=== PATIENT | female | born 1965 | race Caucasian/White ===

== ENCOUNTER 2020-10-05 09:00 | Inpatient (IN) | payer OTHER ==
[~2020-10-05] VITALS: Ht 172.7 cm; Wt 98.4 kg
[2020-10-05 10:27] VITALS: BP 134/84
[2020-10-05] MEDS ORDERED: ACETAMINOPHEN 500 MG TABLET PO PRN (12:30)
[2020-10-05] MEDS ORDERED: ONDANSETRON 2MG/ML, 2ML IVPush PRN (12:30)
[2020-10-05] MEDS ORDERED: PLEASE ENTER ALLERGIES MC SCH (12:30)
[2020-10-05 13:10] LABS: BASOPHILS % (AUTO) 0 % (0-1); EOSINOPHILS % (AUTO) 0 % (1-7); LYMPHOCYTES % (AUTO) 9 % (22-44); MEAN CORPUSCULAR HGB CONC 32.5 g/dL (32.4-35.8); MEAN PLATELET VOLUME 9.8 fL (7.4-10.4); MONOCYTES % (AUTO) 1 % (2-9); NEUTROPHILS % (AUTO) 90 % (42-75); PLATELET COUNT 246 x10^3/uL (130-400); RED BLOOD COUNT 4.98 x10^6/uL (3.82-5.3); RED CELL DISTRIBUTION WIDTH 14.7 % (9.6-15.2)
[2020-10-05 13:20] LABS: ALANINE AMINOTRANSFERASE 40 U/L (12-78); ALBUMIN 3.7 g/dL (3.4-5.0); ANION GAP 6 mmol/L (5-15); CALCIUM 9.9 mg/dL (8.5-10.1); CHLORIDE 103 mmol/L (98-107); CREATININE 0.66 mg/dL (0.55-1.02)
[2020-10-05 13:21] LABS: ALKALINE PHOSPHATASE 113 U/L (45-117); BILIRUBIN,TOTAL 0.6 mg/dL (0.2-1.0); TOTAL PROTEIN 7.4 g/dL (6.4-8.2)
[2020-10-05 13:43] VITALS: BP 117/80
[2020-10-05] MEDS ORDERED: DOCU50LI24 PO (14:39)
[2020-10-05] MEDS ORDERED: MULT-482 PO (14:39)
[2020-10-05] MEDS ORDERED: POLY17PO5 PO (14:39)
[2020-10-05] MEDS ORDERED: IBUP200C75 PO (14:39)
[2020-10-05] MEDS ORDERED: CHOL2400 PO (14:39)
[2020-10-05] MEDS ORDERED: MAGN400O7 PO (14:39)
[2020-10-05] MEDS ORDERED: TRIA1CAP3 PO (14:39)
[2020-10-05] MEDS ORDERED: PYRI100T9 PO (14:39)
[2020-10-05] MEDS ORDERED: IBUP-11 PO (14:39)
[2020-10-05] MEDS ORDERED: SIME100L PO (14:39)
[2020-10-05] MEDS ORDERED: ONDANSETRON 16 MG, DEXAMETHASONE 12 MG in SODIUM CHLORIDE 0.9% 50 ML IVPB ONE (15:00)
[2020-10-05] MEDS ORDERED: FAMOTIDINE 20 MG/2 ML IVPush ONE (15:00)
[2020-10-05] MEDS ORDERED: DIPHENHYDRAMINE 50 MG/ML, 1ML IVPush ONE (15:00)
[2020-10-05] MEDS ORDERED: CARBOPLATIN 900 MG in SODIUM CHLORIDE 0.9% 250 ML IV ONE (15:30)
[2020-10-05] MEDS ORDERED: PACLITAXEL IV ONE (16:00)
[2020-10-05] MEDS ORDERED: SODIUM CHLORIDE 0.9% IV ONE (16:00)
[2020-10-05] MEDS ORDERED: FILTER 0.22 MICRON IV ONE (17:00)
[2020-10-05 18:56] VITALS: BP 113/73
[2020-10-06 02:54] VITALS: BP 111/65
[2020-10-06 07:41] VITALS: BP 115/75
[2020-10-06 12:49] VITALS: BP 109/71
== END 2020-10-06 18:39 | disposition home or self-care (01) | DRG 376 ==
LOC: ORIP 09:00 → 4NW 10:25
PROVIDERS: ADMIT Specialist; ATTEND Specialist
DX: C48.2 Malignant neoplasm of peritoneum, unspecified (principal)
CPT/HCPCS: 36415; 80053; 83735; 85025; G0378; J1100; J2405; J9045; J9267; J1200; J7030; J7050

== ENCOUNTER 2020-10-27 08:52 | Inpatient (IN) | payer OTHER ==
[~2020-10-27] VITALS: Ht 172.7 cm; Wt 99.6 kg
[~2020-10-27 08:52] MED LIST: CHOL2400 PO; DOCU50LI24 PO; IBUP-11 PO; IBUP200C75 PO; MAGN400O7 PO; MULT-482 PO; POLY17PO5 PO; PYRI100T9 PO; SIME100L PO; TRIA1CAP3 PO
[2020-10-27 10:03] LABS: MEAN CORPUSCULAR HEMOGLOBIN 27.7 pg (27.0-34.8); MEAN CORPUSCULAR HGB CONC 33.6 g/dL (32.4-35.8); MEAN PLATELET VOLUME 8.2 fL (7.4-10.4); PLATELET COUNT 252 x10^3/uL (130-400); RED CELL DISTRIBUTION WIDTH 14.7 % (9.6-15.2)
[2020-10-27 10:13] LABS: ALANINE AMINOTRANSFERASE 58 U/L (12-78); ALBUMIN 3.6 g/dL (3.4-5.0); ANION GAP 7 mmol/L (5-15); CALCIUM 9.9 mg/dL (8.5-10.1); CHLORIDE 105 mmol/L (98-107); CREATININE 0.92 mg/dL (0.55-1.02)
[2020-10-27 10:15] LABS: ALKALINE PHOSPHATASE 135 U/L (45-117); BILIRUBIN,TOTAL 0.5 mg/dL (0.2-1.0); TOTAL PROTEIN 7.6 g/dL (6.4-8.2)
[2020-10-27 10:47] LABS: BAND#(MANUAL) 0.14 x10^3/uL; BANDS%(MANUAL) 2 % (0-7); LYMPH#(MANUAL) 1.02 x10^3/uL (1-3.4); LYMPHS% (MANUAL) 15 % (22-44); METAMYELOCYTES# (MANUAL) 0.07 x10^3/uL (0-0); METAMYELOCYTES% (MANUAL) 1 % (0-1); MONOS% (MANUAL) 3 % (2-9); SEGS% (MANUAL) 78 % (42-75)
[2020-10-27 10:48] LABS: OTHER CELLS # (MANUAL) 0.07 x10^3/uL (0-0); OTHER CELLS % (MANUAL) 1 % (0-0)
[2020-10-27 10:49] LABS: <PLATELET ESTIMATE> ADEQUATE; <PLT MORPHOLOGY> NORMAL PLT MORPH; ANISOCYTOSIS 1+; POLYCHROMASIA 1+
[2020-10-27] MEDS ORDERED: DOCU-131 PO (10:57)
[2020-10-27] MEDS ORDERED: TRIA1TAB3 PO (10:58)
[2020-10-27] MEDS ORDERED: DIPHENHYDRAMINE 50 MG/ML, 1ML IVPush ONE (11:00)
[2020-10-27] MEDS ORDERED: FAMOTIDINE 20 MG/2 ML IVPush ONE (11:00)
[2020-10-27] MEDS ORDERED: SODIUM CHLORIDE 0.9% 1,000 ML IV SCH (11:00)
[2020-10-27] MEDS ORDERED: ONDANSETRON 16 MG, DEXAMETHASONE 12 MG in SODIUM CHLORIDE 0.9% 50 ML IVPB ONE (11:00)
[2020-10-27] MEDS ORDERED: ACETAMINOPHEN 500 MG TABLET PO PRN (11:30)
[2020-10-27] MEDS ORDERED: CARBOPLATIN IV ONE (11:30)
[2020-10-27] MEDS ORDERED: ONDANSETRON 2MG/ML, 2ML IVPush PRN (11:30)
[2020-10-27] MEDS ORDERED: SODIUM CHLORIDE 0.9% IV ONE ×2 (11:30→12:00)
[2020-10-27] MEDS ORDERED: PACLITAXEL IV ONE (12:00)
[2020-10-27] MEDS ORDERED: FILTER 0.22 MICRON IV ONE (12:00)
[2020-10-27 12:08] VITALS: BP 105/66
[2020-10-27 18:31] VITALS: BP 115/73
[2020-10-28 01:05] VITALS: BP 106/64
[2020-10-28 06:40] VITALS: BP 126/77
[2020-10-28] MEDS ORDERED: ONDANSETRON 2MG/ML, 2ML IV ONE (12:00)
[2020-10-28 13:42] VITALS: BP 114/78
== END 2020-10-28 15:25 | disposition home or self-care (01) | DRG 756 ==
LOC: 4NW 08:52
PROVIDERS: ADMIT Specialist; ATTEND Specialist
PROC: 3E0 Administration, Physiological Systems and Anatomical Regions, Introduction (ICD-10-PCS; principal; 2020-10-27)
DX: C56.9 Malignant neoplasm of unspecified ovary (principal)
CPT/HCPCS: 36415; 80053; 83735; 85025; G0378; J1100; J2405; J9045; J9267; J1200; J7030; J7050

== ENCOUNTER 2020-11-17 09:00 | Inpatient (IN) | payer OTHER ==
[~2020-11-17] VITALS: Ht 172.7 cm; Wt 99.8 kg
[~2020-11-17 09:00] MED LIST changes: +DOCU-131 PO; +TRIA1TAB3 PO
[2020-11-17 10:17] LABS: CHLORIDE 103 mmol/L (98-107)
[2020-11-17 10:22] LABS: ANION GAP 5 mmol/L (5-15); CALCIUM 9.8 mg/dL (8.5-10.1)
[2020-11-17 10:24] LABS: CREATININE 0.89 mg/dL (0.55-1.02)
[2020-11-17] MEDS ORDERED: MAGN400O7 PO (10:24)
[2020-11-17] MEDS ORDERED: IBUP-1840 PO (10:24)
[2020-11-17] MEDS ORDERED: CALC300T5 PO (10:24)
[2020-11-17] MEDS ORDERED: [UNRECOGNIZED DRUG - CODE] PO (10:24)
[2020-11-17] MEDS ORDERED: DOCU-131 PO (10:24)
[2020-11-17] MEDS ORDERED: POLY17PO5 PO (10:24)
[2020-11-17 10:28] LABS: BASOPHILS % (AUTO) 0 % (0-1); EOSINOPHILS % (AUTO) 0 % (1-7); LYMPHOCYTES % (AUTO) 9 % (22-44); MEAN PLATELET VOLUME 8.5 fL (7.4-10.4); MONOCYTES % (AUTO) 2 % (2-9); NEUTROPHILS % (AUTO) 89 % (42-75); PLATELET COUNT 173 x10^3/uL (130-400); RED BLOOD COUNT 4.08 x10^6/uL (3.82-5.3); RED CELL DISTRIBUTION WIDTH 15.7 % (9.6-15.2)
[2020-11-17] MEDS ORDERED: IBUPROFEN 200 MG TABLET PO PRN (10:30)
[2020-11-17] MEDS ORDERED: LACTASE 9,000 UNITS TABLET PO PRN (10:30)
[2020-11-17] MEDS ORDERED: CALCIUM CARBONATE 500 MG TAB.CHEW PO PRN (10:30)
[2020-11-17] MEDS ORDERED: POLYETHYLENE GLYCOL 17 GM PACKET PO PRN (10:30)
[2020-11-17] MEDS ORDERED: MAGNESIUM HYDROXIDE 8%, 30ML UDC PO PRN (10:30)
[2020-11-17] MEDS ORDERED: POTASSIUM CHLORIDE 20 MEQ TAB.ER.PRT PO ONE ×2 (11:30→12:00)
[2020-11-17] MEDS ORDERED: FILTER 0.22 MICRON IV ONE (12:00)
[2020-11-17 12:32] VITALS: BP 133/83
[2020-11-17] MEDS ORDERED: ONDANSETRON 16 MG, DEXAMETHASONE 12 MG in SODIUM CHLORIDE 0.9% 50 ML IVPB ONE (13:00)
[2020-11-17] MEDS ORDERED: SODIUM CHLORIDE 0.9% 500 ML IV ONE (13:00)
[2020-11-17] MEDS ORDERED: FAMOTIDINE 20 MG/2 ML IVPush ONE (13:00)
[2020-11-17] MEDS ORDERED: DIPHENHYDRAMINE 50 MG/ML, 1ML IVPush ONE (13:00)
[2020-11-17] MEDS ORDERED: PACLITAXEL IV ONE (13:30)
[2020-11-17] MEDS ORDERED: SODIUM CHLORIDE 0.9% IV ONE ×2 (13:30→14:00)
[2020-11-17] MEDS ORDERED: CARBOPLATIN IV ONE (14:00)
[2020-11-17] MEDS ORDERED: CARBOPLATIN 900 MG in SODIUM CHLORIDE 0.9% 250 ML IV ONE (14:00)
[2020-11-17 18:38] VITALS: BP 110/69
[2020-11-17] MEDS: DOCUSATE 100 MG CAPSULE PO SCH (20:17)
[2020-11-18 04:00] VITALS: BP 115/68
[2020-11-18 07:23] VITALS: BP 121/75
[2020-11-18] MEDS ORDERED: CHOLECALCIFEROL 5,000u TAB PO SCH (09:00)
[2020-11-18] MEDS ORDERED: MULTIVITAMIN 1 TABLET PO SCH (09:00)
[2020-11-18] MEDS ORDERED: PYRIDOXINE (VITAMIN B6) 100 MG TAB PO SCH (09:00)
[2020-11-18] MEDS ORDERED: TRIAMTERENE-HCTZ 37.5/25 MG TABLET PO SCH (09:00)
[2020-11-18] MEDS: DOCUSATE 100 MG CAPSULE PO SCH (09:37)
[2020-11-18] MEDS ORDERED: PROCHLORPERAZINE 10MG TABLET PO PRN (12:00)
[2020-11-18] MEDS ORDERED: ONDANSETRON 2MG/ML, 2ML IV ONE (12:30)
[2020-11-18 12:39] VITALS: BP 123/78
== END 2020-11-18 15:40 | disposition home or self-care (01) | DRG 376 ==
LOC: 4NW 09:08
PROVIDERS: ADMIT Specialist; ATTEND Specialist
DX: C48.2 Malignant neoplasm of peritoneum, unspecified (principal); K59.00 Constipation, unspecified
CPT/HCPCS: 36415; Q0164; 80048; 83735; 85025; G0378; J1100; J2405; J9045; J9267; J1200; J7030; J7040; J7050

== ENCOUNTER 2020-12-08 09:00 | Inpatient (IN) | payer OTHER ==
[~2020-12-08] VITALS: Ht 172.7 cm; Wt 100.3 kg
[~2020-12-08 09:00] MED LIST changes: +CALC300T5 PO; +IBUP-1840 PO; +[UNRECOGNIZED DRUG - CODE] PO
[2020-12-15 10:00] VITALS: BP 123/71
[2020-12-15] MEDS ORDERED: SIME80TA16 PO (10:32)
[2020-12-15] MEDS ORDERED: MAGN400O7 PO (10:40)
[2020-12-15] MEDS ORDERED: DEXA4TAB66 PO ×2 (10:40)
[2020-12-15] MEDS ORDERED: ACETAMINOPHEN 500 MG TABLET PO PRN (11:00)
[2020-12-15] MEDS ORDERED: PROCHLORPERAZINE 5 MG/ML, 2ML IV PRN (11:00)
[2020-12-15] MEDS ORDERED: ONDANSETRON 2MG/ML, 2ML IV PRN (11:00)
[2020-12-15] MEDS ORDERED: MAGNESIUM SULFATE/D5W 100 ML IVPB ONE (11:30)
[2020-12-15] MEDS ORDERED: MAGNESIUM HYDROXIDE 8%, 30ML UDC PO PRN (11:30)
[2020-12-15] MEDS ORDERED: SODIUM CHLORIDE 0.9% 500 ML IV ONE (11:30)
[2020-12-15] MEDS ORDERED: CALCIUM CARBONATE 500 MG TAB.CHEW PO PRN (11:30)
[2020-12-15] MEDS ORDERED: DIPHENHYDRAMINE 50 MG/ML, 1ML IVPush ONE (11:30)
[2020-12-15] MEDS ORDERED: SIMETHICONE 80 MG CHEW TAB PO PRN (11:30)
[2020-12-15] MEDS ORDERED: IBUPROFEN 200 MG TABLET PO PRN (11:30)
[2020-12-15] MEDS: PYRIDOXINE (VITAMIN B6) 100 MG TAB PO SCH (12:00)
[2020-12-15] MEDS ORDERED: FAMOTIDINE 20 MG/2 ML IVPush ONE (13:30)
[2020-12-15] MEDS ORDERED: ONDANSETRON 16 MG, DEXAMETHASONE 12 MG in SODIUM CHLORIDE 0.9% 50 ML IVPB ONE (13:30)
[2020-12-15] MEDS ORDERED: SODIUM CHLORIDE 0.9% IV ONE (14:00)
[2020-12-15] MEDS ORDERED: FILTER 0.22 MICRON IV ONE (14:00)
[2020-12-15] MEDS ORDERED: PACLITAXEL IV ONE (14:00)
[2020-12-15] MEDS ORDERED: CARBOPLATIN 900 MG in SODIUM CHLORIDE 0.9% 250 ML IV ONE (14:30)
[2020-12-15 15:00] VITALS: BP 132/73
[2020-12-15 19:33] VITALS: BP 107/71
[2020-12-15] MEDS: DOCUSATE 100 MG CAPSULE PO SCH (20:43)
[2020-12-16 03:27] VITALS: BP 108/67
[2020-12-16] MEDS ORDERED: MULTIVITAMIN 1 TABLET PO SCH (09:00)
[2020-12-16] MEDS ORDERED: CHOLECALCIFEROL 1,000 UNIT TABLET PO SCH (09:00)
[2020-12-16] MEDS ORDERED: TRIAMTERENE-HCTZ 37.5/25 MG TABLET PO SCH (09:00)
[2020-12-16] MEDS ORDERED: POLYETHYLENE GLYCOL 17 GM PACKET PO SCH (09:00)
[2020-12-16] MEDS: PYRIDOXINE (VITAMIN B6) 100 MG TAB PO SCH (09:26)
[2020-12-16] MEDS: DOCUSATE 100 MG CAPSULE PO SCH (09:26)
[2020-12-16 09:46] VITALS: BP 97/63
[2020-12-16 13:02] VITALS: BP 100/67
[2020-12-16] MEDS ORDERED: ONDANSETRON 2MG/ML, 2ML IV ONE (15:00)
== END 2020-12-16 18:30 | disposition home or self-care (01) | DRG 376 ==
LOC: 4NW 12-15 09:33
PROVIDERS: ADMIT Specialist; ATTEND Specialist
DX: C48.2 Malignant neoplasm of peritoneum, unspecified (principal); Z88.8 Allergy status to other drugs, medicaments and biological substances
CPT/HCPCS: G0378; J1100; J2405; J9045; J9267; J0780; J1200; J7030; J7040; J7050

== ENCOUNTER 2021-01-05 09:00 | Inpatient (IN) | payer OTHER ==
[~2021-01-05] VITALS: Ht 172.7 cm; Wt 101.5 kg
[~2021-01-05 09:00] MED LIST changes: +DEXA4TAB66 PO; +SIME80TA16 PO
[2021-01-05] MEDS ORDERED: PLEASE ENTER HEIGHT AND WEIGHT MC SCH (10:30)
[2021-01-05 10:34] VITALS: BP 111/71
[2021-01-05 12:08] LABS: MEAN CORPUSCULAR HEMOGLOBIN 31.3 pg (27.0-34.8); MEAN CORPUSCULAR HGB CONC 33.4 g/dL (32.4-35.8); MEAN PLATELET VOLUME 8.4 fL (7.4-10.4); PLATELET COUNT 274 x10^3/uL (130-400); RED BLOOD COUNT 2.92 x10^6/uL (3.82-5.3); RED CELL DISTRIBUTION WIDTH 27.6 % (9.6-15.2)
[2021-01-05 12:24] LABS: ANISOCYTOSIS 1+; BAND#(MANUAL) 0.19 x10^3/uL; BANDS%(MANUAL) 3 % (0-7); LYMPH#(MANUAL) 0.62 x10^3/uL (1-3.4); LYMPHS% (MANUAL) 10 % (22-44); MONOS#(MANUAL) 0.06 x10^3/uL (0.3-2.7); MONOS% (MANUAL) 1 % (2-9); REACTIVE LYMPHS # (MANUAL) 0.19 x10^3/uL (0-0); REACTIVE LYMPHS % (MANUAL) 3 % (0-0); SEG#(MANUAL) 5.15 x10^3/uL (1.8-6.8); SEGS% (MANUAL) 83 % (42-75)
[2021-01-05 12:25] LABS: <PLATELET ESTIMATE> ADEQUATE; <PLT MORPHOLOGY> NORMAL PLT MORPH; OVALOCYTES 1+; POLYCHROMASIA 1+
[2021-01-05 12:29] LABS: ALANINE AMINOTRANSFERASE 52 U/L (12-78); ALBUMIN 3.6 g/dL (3.4-5.0); ANION GAP 11 mmol/L (5-15); CALCIUM 9.9 mg/dL (8.5-10.1); CHLORIDE 102 mmol/L (98-107)
[2021-01-05 12:32] LABS: ALKALINE PHOSPHATASE 113 U/L (45-117); BILIRUBIN,TOTAL 0.6 mg/dL (0.2-1.0); CREATININE 0.83 mg/dL (0.55-1.02); TOTAL PROTEIN 7.1 g/dL (6.4-8.2)
[2021-01-05 12:50] VITALS: BP 116/68
[2021-01-05] MEDS ORDERED: PROCHLORPERAZINE 5 MG/ML, 2ML IM PRN (13:30)
[2021-01-05] MEDS ORDERED: ACETAMINOPHEN 500 MG TABLET PO PRN (13:30)
[2021-01-05] MEDS ORDERED: ONDANSETRON 2MG/ML, 2ML IV PRN (13:30)
[2021-01-05] MEDS ORDERED: ONDANSETRON 16 MG, DEXAMETHASONE 12 MG in SODIUM CHLORIDE 0.9% 50 ML IVPB ONE (14:00)
[2021-01-05] MEDS ORDERED: CARBOPLATIN 900 MG in SODIUM CHLORIDE 0.9% 250 ML IV ONE (14:00)
[2021-01-05] MEDS ORDERED: DIPHENHYDRAMINE 50 MG/ML, 1ML IVPush PRN (15:00)
[2021-01-05] MEDS ORDERED: FAMOTIDINE 20 MG/2 ML IVPush ONE (15:00)
[2021-01-05] MEDS ORDERED: SODIUM CHLORIDE 0.9% IV SCH (15:30)
[2021-01-05] MEDS ORDERED: PACLITAXEL IV SCH (15:30)
[2021-01-05] MEDS ORDERED: FILTER 0.22 MICRON IV ONE (18:00)
[2021-01-05] MEDS ORDERED: MAGNESIUM HYDROXIDE 8%, 30ML UDC PO PRN (19:00)
[2021-01-05 19:30] VITALS: BP 117/72
[2021-01-05] MEDS ORDERED: PROCHLORPERAZINE 5 MG/ML, 2ML IVPush PRN (19:30)
[2021-01-06 03:31] VITALS: BP 98/50
[2021-01-06 09:24] VITALS: BP 116/74
[2021-01-06 14:18] VITALS: BP 112/73
== END 2021-01-06 17:45 | disposition home or self-care (01) | DRG 375 ==
LOC: 4NW 09:28
PROVIDERS: ADMIT Specialist; ATTEND Specialist
DX: C48.2 Malignant neoplasm of peritoneum, unspecified (principal); C56.9 Malignant neoplasm of unspecified ovary; G62.0 Drug-induced polyneuropathy; I10 Essential (primary) hypertension; K14.1 Geographic tongue; Z85.3 Personal history of malignant neoplasm of breast; Z92.21 Personal history of antineoplastic chemotherapy; Z88.8 Allergy status to other drugs, medicaments and biological substances; Z82.49 Family history of ischemic heart disease and other diseases of the circulatory system; Z83.3 Family history of diabetes mellitus; Z80.8 Family history of malignant neoplasm of other organs or systems
CPT/HCPCS: 36415; 80053; 83735; 85025; G0378; J1100; J2405; J9045; J9267; J0780; J1200; J7030; J7050